=== PATIENT | female | born 1995 | race Caucasian/White ===

== ENCOUNTER 2019-03-05 14:38 | Emergency (ER) | payer OTHER ==
--- NOTE | 2019-03-05 15:13 | RAD ---
XR Chest Pa Lat STANDARD History: Fever cough and body aches Comparison: Radiograph 2011 Findings: Lungs are clear. No pneumothorax or effusion. Cardiac silhouette and mediastinal contours a re within normal limits. No acute osseous abnormality. Impression: No acute intrathoracic abnormality.
== END 2019-03-05 15:35 | disposition home or self-care (01) ==
LOC: SCSER 14:38
DX: J06.9 Acute upper respiratory infection, unspecified (principal)
CPT/HCPCS: 71046; 87804

== ENCOUNTER 2019-04-27 13:20 | Emergency (ER) | payer OTHER ==
[2019-04-27] MEDS ORDERED: HYDROcodone/Acetaminophen 5/325 mg Tablet ONE (13:41)
--- NOTE | 2019-04-27 14:14 | RAD ---
XR Foot Lt 3 View STANDARD INDICATION: Foot pain COMPARISON: None. FINDINGS: Bones: No acute fracture identified. Joints: Joints spaces appear preserved. Lisfranc alignment: Lisfranc alignment appears within normal limits. Soft tissues: No soft tissue injury demonstrated. No radiographic foreign body demonstrated. IMPRESSION: No acute osseous abnormality.
--- NOTE | 2019-04-27 14:14 | RAD ---
XR Ankle Lt 3 View STANDARD INDICATION: Lateral malleolus pain COMPARISON: None. FINDINGS: Bones: Intact. Ankle mortise: Symmetric. Talar Dome: Intact. Subtalar joint: Normal. Visualized hindfoot: Normal. Periarticular soft tissues: Normal. IMPRESSION: 1. No acute fracture or subluxation demonstrated.
== END 2019-04-27 14:20 | disposition home or self-care (01) ==
LOC: SCSER 13:20
DX: S93.602A Unspecified sprain of left foot, initial encounter (principal); S93.402A Sprain of unspecified ligament of left ankle, initial encounter; X50.1XXA Overexertion from prolonged static or awkward postures, initial encounter